=== PATIENT | male | born 1995 | race Caucasian/White ===

== ENCOUNTER 2020-02-26 15:38 | Emergency (ER) | payer BC ==
[~2020-02-26] VITALS: Ht 185.4 cm; Wt 104.3 kg
[2020-02-26] MEDS ORDERED: LIDOCAINE 1% INJ 50 ML MDV IJ ONE ×2 (16:43→17:00)
[2020-02-26] MEDS ORDERED: FENTANYL PF 100MCG/2ML AMPUL IV ONE (17:00)
--- NOTE | 2020-02-26 17:00 | NUR ---
MD at bedside for closed reduction of Right shoulder dislocation. Pt aware- consents to procedure.
[2020-02-26] MEDS ORDERED: LORAZEPAM INJ 2 MG/ML VIAL ONE (17:05)
[2020-02-26] MEDS ORDERED: FENTANYL PF 100MCG/2ML AMPUL ONE (17:09)
--- NOTE | 2020-02-26 17:20 | NUR ---
RADIOLOGY BACK AT BEDSIDE FOR R SHOULDER POST REDUCTION XRAY.
[2020-02-26] MEDS ORDERED: LORAZEPAM INJ 2 MG/ML VIAL IV ONE (17:30)
[2020-02-26 18:20] VITALS: BP 133/79
--- NOTE | 2020-02-26 18:21 | NUR ---
Patient discharged to home in stable condition. Written and verbal after care instructions given. Patient verbalizes understanding of instruction. Reinforced instruction against driving tonight
== END 2020-02-26 18:21 | disposition home or self-care (01) ==
LOC: ER 15:43
DX: S43.084A Other dislocation of right shoulder joint, initial encounter (principal); Z98.890 Other specified postprocedural states; Z60.2 Problems related to living alone; X58.XXXA Exposure to other specified factors, initial encounter; Y93.89 Activity, other specified; Y92.89 Other specified places as the place of occurrence of the external cause; Y99.8 Other external cause status
CPT/HCPCS: 23650; 73030 ×2; 99285; J2060; J3010; J3490

== ENCOUNTER 2023-10-05 13:00 | Emergency (ER) | payer SELFPAY ==
[~2023-10-05] VITALS: Ht 185.4 cm; Wt 95.3 kg
[2023-10-05 13:47] LABS: BASOPHILS % (AUTO) 0.6 % (0.0-2.0); EOSINOPHILS # (AUTO) 0.1 K/uL (0.0-0.7); HEMATOCRIT 44 % (39-51); HEMOGLOBIN 14.8 g/dL (13.5-17.5); LYMPHOCYTES % (AUTO) 26.4 % (20.0-44.0); MEAN CORPUSCULAR HEMOGLOBIN 30 PG (26.0-33.0); MEAN CORPUSCULAR HGB CONC 34 g/dl (31.0-36.0); MEAN CORPUSCULAR VOLUME 89 fL (80-96); MONOCYTES # (AUTO) 0.9 K/uL (0.1-1.30); NEUTROPHILS # (AUTO) 4.6 K/uL (1.8-8.9); PLATELET COUNT (AUTO) 244 K/uL (150-450); RED BLOOD CELL COUNT(AUTO) 4.97 MIL/uL (4.5-6.0); RED CELL DISTRIBUTION WIDTH 13.3 % (11.5-15.0); WHITE BLOOD COUNT (AUTO) 7.7 K/uL (4.3-11.0)
[2023-10-05 13:57] LABS: CALCIUM, SERUM 9.3 mg/dL (8.5-10.1); CREATININE 1.1 mg/dL (0.6-1.3); POTASSIUM 3.8 mmol/L (3.5-5.1)
[2023-10-05 14:02] LABS: ALBUMIN 4.1 g/dL (3.4-5.0); BILIRUBIN,DIRECT 0.2 mg/dL (0.0-0.2); BILIRUBIN,TOTAL 0.9 mg/dL (0.2-1.0); TOTAL PROTEIN, SERUM 7.4 g/dL (6.4-8.2)
[2023-10-05] MEDS ORDERED: CIPR500T5 PO (14:55)
[2023-10-05 15:33] VITALS: BP 120/65; TEMP 98.7; O2SAT 100
== END 2023-10-05 15:33 | disposition home or self-care (01) ==
LOC: ER 13:00
DX: K52.9 Noninfective gastroenteritis and colitis, unspecified (principal); Z98.890 Other specified postprocedural states; Z79.899 Other long term (current) drug therapy; Z60.2 Problems related to living alone
CPT/HCPCS: 36415; 80048-TC; 80076-TC; 83690-TC; 85025-TC